=== PATIENT | female | born 1995 ===

== ENCOUNTER 2023-05-03 21:37 | Emergency (ER) | payer OTHER ==
[~2023-05-03] VITALS: Ht 172.7 cm; Wt 112.7 kg
[2023-05-03 21:40] VITALS: BP 120/71; PULSE 71; RESP 16; TEMP 98.3
== END 2023-05-03 22:47 | disposition left against medical advice (07) ==
LOC: EMS 21:37
DX: R21 Rash and other nonspecific skin eruption (principal); Z53.21 Procedure and treatment not carried out due to patient leaving prior to being seen by health care provider
CPT/HCPCS: 99281; Z7502